=== PATIENT | female | born 1950 | race Caucasian/White ===

== ENCOUNTER 2017-03-09 13:02 | Outpatient (CLI) | payer OTHER | END 2017-03-09 13:12 | disposition home or self-care (01) | LOC: RAD 13:02 | DX: J00 Acute nasopharyngitis [common cold] (principal) ==

== ENCOUNTER → 2017-03-09 | Outpatient (CLI) | payer OTHER ==
[~2017-03-09] VITALS: Ht 152.4 cm; Wt 72.6 kg
[~2017-03-09] MED LIST: AVAPRO300 MG PO; HYDRALAZINE PO; NORVASC10 MG PO; PRILOSEC10 MG PO; PROBIOTIC & AC1 EACH PO; RECTICARE30 GM TOP; SYNTHROID112 MCG PO
== END | disposition home or self-care (01) ==
LOC: EKG 06:00 → SURH 03-15 07:00 → EDSTATUS 03-15 09:00 → SURH 03-15 09:00
DX: D37.5 Neoplasm of uncertain behavior of rectum (principal); R19.5 Other fecal abnormalities; D12.8 Benign neoplasm of rectum; Z01.810 Encounter for preprocedural cardiovascular examination

== ENCOUNTER 2017-05-25 09:00 | Inpatient (IN) | payer OTHER ==
[~2017-05-25] VITALS: Ht 152.4 cm; Wt 77.1 kg
[2017-06-08] MEDS ORDERED: INTESTINEX680 M1 PO (11:09)
[2017-06-08] MEDS ORDERED: OXYC1TAB9 PO (11:09)
== END 2017-06-08 13:59 | disposition home or self-care (01) | DRG 331 ==
LOC: SURG 06-03 06:10 → O/R 06-03 06:10 → SURG 06-03 08:45
PROVIDERS: Surgery
PROC: 0DTP4ZZ Resection of Rectum, Percutaneous Endoscopic Approach (ICD-10-PCS; 2017-06-03)
PROC: 07TC4ZZ Resection of Pelvis Lymphatic, Percutaneous Endoscopic Approach (ICD-10-PCS; 2017-06-03)
PROC: 0DJD8ZZ Inspection of Lower Intestinal Tract, Via Natural or Artificial Opening Endoscopic (ICD-10-PCS; 2017-06-03)
PROC: 0DTN4ZZ Resection of Sigmoid Colon, Percutaneous Endoscopic Approach (ICD-10-PCS; principal; 2017-06-03 08:45)
DX: D37.5 Neoplasm of uncertain behavior of rectum (principal)

== ENCOUNTER 2018-05-17 06:35 | Day surgery (SDC) | payer OTHER ==
[~2018-05-17 06:35] MED LIST changes: +INTESTINEX680 M1 PO; +OXYC1TAB9 PO
== END 2018-05-17 11:00 | disposition home or self-care (01) ==
LOC: AMB-ENDOS 06:35
DX: D12.8 Benign neoplasm of rectum (principal); K64.8 Other hemorrhoids

== ENCOUNTER 2019-08-28 07:00 | Day surgery (SDC) | payer OTHER | END 2019-08-29 08:00 | disposition home or self-care (01) | LOC: CIR.AMB 07:00 | DX: C7A.026 Malignant carcinoid tumor of the rectum (principal) ==

== ENCOUNTER → 2020-04-02 08:00 | Outpatient (CLI) | payer OTHER ==
[~2020-04-02 08:00] MED LIST changes: +ASPIR 8181 MG PO; +COZAAR50 MG PO; +DICY20TA PO; +HYDRALAZINE HCL50 MG; +HYDROCHLOROTH12.5 MG PO; +ISOSORBIDE DINI30 MG PO; +ISOSORBIDE MONO30 M2 PO; +OMEPRAZOLE40 MG PO; +ZETIA10 MG PO
== END | disposition home or self-care (01) ==
LOC: LAB 08:00 → ADM 12:15 → EDSTATUS 04-09 12:15 → AMB-ENDOS 04-09 12:15 → ADM 04-30 12:00
PROVIDERS: ATTEND Surgery
DX: Z03.818 Encounter for observation for suspected exposure to other biological agents ruled out (principal); D37.5 Neoplasm of uncertain behavior of rectum; R19.5 Other fecal abnormalities; Z20.828 Contact with and (suspected) exposure to other viral communicable diseases; C19 Malignant neoplasm of rectosigmoid junction; D3A.026 Benign carcinoid tumor of the rectum

== ENCOUNTER → 2020-09-03 | Day surgery (SDC) | payer OTHER | END | disposition home or self-care (01) | LOC: ADM 08-27 13:15 → AMB-ENDOS 10:37 | PROVIDERS: ATTEND Surgery | DX: K63.5 Polyp of colon (principal); K64.8 Other hemorrhoids; Z20.822 Contact with and (suspected) exposure to COVID-19 ==